=== PATIENT | male | born 1975 | race Caucasian/White ===

== ENCOUNTER 2024-01-18 14:03 | Emergency (ER) | payer OTHER ==
[~2024-01-18] VITALS: Ht 180.3 cm; Wt 98.5 kg
[2024-01-18] MEDS ORDERED: NAPR-837 PO (15:05)
[2024-01-18 15:18] VITALS: BP 162/87; TEMP 99; O2SAT 98
== END 2024-01-18 15:19 | disposition home or self-care (01) ==
LOC: M ED 14:03
DX: S43.401A Unspecified sprain of right shoulder joint, initial encounter (principal); Y92.9 Unspecified place or not applicable; Y93.9 Activity, unspecified; Y99.0 Civilian activity done for income or pay; F17.210 Nicotine dependence, cigarettes, uncomplicated; Z79.899 Other long term (current) drug therapy